=== PATIENT | male | born 1960 | race Caucasian/White ===

== ENCOUNTER 2019-08-30 10:36 | Emergency (ER) | payer BC, SELFPAY ==
[2019-08-30] VITALS (46 sets, daily range): BP systolic 140–154; BP diastolic 82–94; PULSE 96–108; RESP 16–19; TEMP 36.6; O2SAT 93–100; BMI 32.3
--- NOTE | 2019-08-30 10:41 | ED_ITS ---
Entered by Shani Whittaker, acting as scribe for HPI - Abdominal Pain General: Chief Complaint: Abdominal Pain Stated Complaint: Abd pain, back pain Time Seen by Provider: 08/30/19 10:45 Source: patient and family Mode of arrival: ambulatory Limitations: no limitations History of Present Illness: HPI narrative: 58 yo male presents with abdomen pain. pt states it radiates to his R shoulder blade and back. pt states this started last month but worsened yesterday. pt was seen by PCP clinic Dr. Reese and he was Dx with a stomach ulcer. pt states he has had stomach spasms also. pt denies any other symptoms at this time. MD elicited complaint: abdominal pain and other (R shoulder blade and back pain) Pertinent past history: other (ulcer) Onset (ago): day(s) (yesterday) Pain Consistency: constant Location: Periumbilical, RLQ and LLQ Severity: moderate Quality: fullness Radiation: LLQ, RLQ and back Migration to: LLQ and RLQ Exacerbating factors: nothing Relieving factors: nothing Associated Symptoms: Reports change in stool character (black flakes), GI cramping and nausea; Denies bloating, chills, coffee ground emesis, dysuria, fever(s), hematuria, hematemesis, melena, syncope and vomiting Treatments prior to arrival: other (pt was seen by Dr. Reese yesterday, DX with a ulcer) Review of Systems Const: Denies: fever, chills, body aches, fatigue, malaise or night sweats Eyes: Denies: change in vision or blurry vision ENMT: Denies: throat pain, oral sores/lesions, dental pain, nasal discharge or nasal congestion Card: Denies: chest pain, palpitations, irregular heart rhythm, edema, syncope, shortness of breath on exertion, shortness of breath when lying down or leg pain with exertion Resp: Reports: shortness of breath and non-productive cough; Denies: productive cough or wheezing GI: Reports: abdominal pain, nausea, cramping and change in stool character (black flakes); Denies: vomiting, vomiting blood, coffee grounds in vomit, bloating or black tarry stool : Denies: flank pain, difficulty urinating, painful urination, urinary frequency, urinary urgency, urinary incontinence or blood in urine Musc: Denies: neck pain, back pain, extremity pain, extremity swelling, joint pain or joint swelling Skin/Breast: Denies: rash, itching or redness Neuro: Denies: headache, numbness in extremities, weakness in extremities, changes in sensation, lack of coordination, difficulty walking, frequent falls, dizziness, vertigo or confusion Psych: Denies: sleeping more Endo: Denies: excessive urination, excessive thirst, tired all the time or cold intolerance Abdi/Lymph: Denies: easy bruising, easy bleeding, petechiae, enlarged lymph nodes or tender lymph nodes PFSH ED PFSH: Statuses (acute, chronic, etc) shown below reflect problem list status as previously entered and may not be historically accurate Medical History Diabetes mellitus (Acute) Hyperlipidemia (Acute) Social History Smoking and tobacco status: never smoked Alcohol intake: never Physical Exam Const: COMMON NORMALS: average body habitus, oriented x3 and alert GENERAL APPEARANCE: cooperative, comfortable, well kempt and well developed NUTRITIONAL APPEARANCE: obese ORIENTATION/CONSCIOUSNESS: Yes awake, Yes oriented to person and Yes oriented to place HENMT: COMMON NORMALS: normocephalic, head/scalp atraumatic, EAC's normal, TM's normal bilaterally, external nose normal, moist oral mucous membranes and oropharynx normal HEAD & SCALP: normocephalic and atraumatic NOSE: external nose normal EXTERNAL AUDITORY CANAL: EAC's normal TYMPANIC MEMBRANE: TM's normal bilaterally MOUTH: oral and palatal mucosa normal, lip normal and tongue normal THROAT: posterior oropharynx normal and tonsils normal Eye: COMMON NORMALS: PERRL, EOMs intact bilaterally, conjunctivae normal and no scleral icterus CONJUNCTIVA: Yes conjunctivae normal PUPIL: Yes PERRL Neck/C-Spine: COMMON NORMALS: full ROM, no lymphadenopathy, supple, no meningeal signs and thyroid normal THYROID: thyroid normal and asymmetrical Lymph: LYMPHATIC: no lymphadenopathy noted Resp: COMMON NORMALS: normal respiratory effort, no retractions, no use of accessory muscles and clear to auscultation bilaterally AUSCULTATION: clear to auscultation bilaterally Cardio: COMMON NORMALS: regular rate and regular rhythm RATE: regular rate RHYTHM: regular rhythm HEART SOUNDS: no murmurs : COMMON NORMALS: Yes no CVA tenderness BLADDER/KIDNEY EXAM: Yes no CVA tenderness Back/Pelvis: COMMON NORMALS: no CVA tenderness LUMBAR SPINE/LOWER BACK: Yes normal to inspection Extremity: COMMON NORMALS: no clubbing, cyanosis or edema, no calf tenderness and no pedal edema Neuro: COMMON NORMALS: oriented x3 SENSORIUM/ORIENTATION: Yes alert, Yes oriented to person and Yes oriented to place MENINGEAL SIGNS: Yes no meningeal signs Psych: APPEARANCE: Yes well kempt Skin: COMMON NORMALS: no rashes or lesions noted and skin turgor normal GENERAL SKIN EXAM: no rashes or lesions noted and turgor normal Course Vital Signs: Vital signs: Vital Signs Temperature 98 F 08/30/19 10:40 Pulse Rate 98 08/30/19 14:21 Respiratory Rate 16 08/30/19 14:21 Blood Pressure 140/93 08/30/19 14:21 Pulse Oximetry 97 08/30/19 14:21 MDM - Abdominal Pain Lab Data: Labs: Lab Results 08/30/19 08/30/19 08/30/19 Range/Units 10:57 10:57 11:07 WBC 3.6 L (4.0-10.0) 10^3/ uL RBC 5.08 (4.1-5.3) 10^6/u L Hgb 14.7 (11.7-16.6) g/dL Hct 44.2 (42.0-52.0) % MCV 87.0 (80-94) fL MCH 28.9 (28.0-34.0) pg MCHC 33.3 (30.0-36.0) g/dL RDW 14.0 (12.1-15.1) % Plt Count 163 (130-400) 10^3/c mm MPV 10.2 (7.4-10.4) fL Neut % (Auto) 69.4 % Lymph % (Auto) 20.8 % Hamlin % (Auto) 7.8 % Eos % (Auto) 1.4 % Baso % (Auto) 0.3 % Neut # (Auto) 2.5 (1.8-7.7) 10^3/u L Lymph # (Auto) 0.8 (0.8-4.8) 10^3/u L Hamlin # (Auto) 0.3 (0.2-0.9) 10^3/u L Eos # (Auto) 0.1 (0.0-0.8) 10^3/u L Baso # (Auto) 0.0 (0.0-0.1) 10^3/u L Nucleated RBC % (a uto) 0 % Nucleated RBCs # 0.0 /100WBC Sodium 130 L (136-145) mmol/L Potassium 4.5 (3.5-5.1) mmol/L Chloride 91 L (98-107) mmol/L Carbon Dioxide 22 (22-29) mmol/L Anion Gap 21.5 H (5-19) BUN 16 (6-20) mg/dL Creatinine 0.6 L (0.7-1.2) mg/dL GFR Calculation 139.4 H (90-130) mL/min Glucose 380 H (74-109) mg/dL Lactate (0.5-2.2) mmol/L Calcium 10.5 H (8.6-10.0) mg/Dl Total Bilirubin 0.7 (0.15-1.2) mg/dL AST 15 (0-40) U/L ALT 21 (0-41) U/L Alkaline Phosphata se 138 H (40-130) IU/L Total Protein 7.3 (6.6-8.7) g/dL Albumin 4.7 (3.5-5.2) g/dL Globulin 2.6 (1.3-4.6) g/dL Lipase 18 (13-60) U/L Urine Color Straw (Yellow) Urine Appearance Clear (CLEAR) Urine pH 5 (5-7) Ur Specific Gravit y 1.015 (1.005-1.030) Urine Protein Neg (Negative) Urine Glucose (UA) 4+ H (Normal) Urine Ketones 3+ H (Negative) Urine Occult Blood Neg (Negative) Urine Nitrate Negative (Negative) Urine Bilirubin Neg (NEGATIVE) Urine Urobilinogen Norm (Negative) mg/dL Ur Leukocyte Leanna ase Negative (Negative) 08/30/19 Range/Units 12:55 WBC (4.0-10.0) 10^3/ uL RBC (4.1-5.3) 10^6/u L Hgb (11.7-16.6) g/dL Hct (42.0-52.0) % MCV (80-94) fL MCH (28.0-34.0) pg MCHC (30.0-36.0) g/dL RDW (12.1-15.1) % Plt Count (130-400) 10^3/c mm MPV (7.4-10.4) fL Neut % (Auto) % Lymph % (Auto) % Hamlin % (Auto) % Eos % (Auto) % Baso % (Auto) % Neut # (Auto) (1.8-7.7) 10^3/u L Lymph # (Auto) (0.8-4.8) 10^3/u L Hamlin # (Auto) (0.2-0.9) 10^3/u L Eos # (Auto) (0.0-0.8) 10^3/u L Baso # (Auto) (0.0-0.1) 10^3/u L Nucleated RBC % (a uto) % Nucleated RBCs # /100WBC Sodium (136-145) mmol/L Potassium (3.5-5.1) mmol/L Chloride (98-107) mmol/L Carbon Dioxide (22-29) mmol/L Anion Gap (5-19) BUN (6-20) mg/dL Creatinine (0.7-1.2) mg/dL GFR Calculation (90-130) mL/min Glucose (74-109) mg/dL Lactate 1.6 (0.5-2.2) mmol/L Calcium (8.6-10.0) mg/Dl Total Bilirubin (0.15-1.2) mg/dL AST (0-40) U/L ALT (0-41) U/L Alkaline Phosphata se (40-130) IU/L Total Protein (6.6-8.7) g/dL Albumin (3.5-5.2) g/dL Globulin (1.3-4.6) g/dL Lipase (13-60) U/L Urine Color (Yellow) Urine Appearance (CLEAR) Urine pH (5-7) Ur Specific Gravit y (1.005-1.030) Urine Protein (Negative) Urine Glucose (UA) (Normal) Urine Ketones (Negative) Urine Occult Blood (Negative) Urine Nitrate (Negative) Urine Bilirubin (NEGATIVE) Urine Urobilinogen (Negative) mg/dL Ur Leukocyte Leanna ase (Negative) Imaging Data ^: CT Abd/Pel: Radiologist's impression: [address] [place] [address] CT Scan Report Signed Patient: Heron Norton #: [id number] : 1960Acct#:[id number] Age/Sex: 58 / MADM Date: 08/30/19 Loc: ERRoom/Bed: Attending Dr: Ordering Provider/Ordering MD: Pablo Nick DO Date of Service: 08/30/19 Procedure(s): CT abdomen pelvis w con* [id number] Accession Number(s): [id number] Report Number: [id number] PROCEDURE INFORMATION: Exam: CT Abdomen And Pelvis With Contrast Exam date and time: 08/30/2019 11:08 AM Age: 58 years old Clinical indication: Abdominal pain; Generalized; Prior surgery; Surgery date: 6+ months; Additional info: Abd pain TECHNIQUE: Imaging protocol: Computed tomography of the abdomen and pelvis with intravenous contrast. Total DLP: 1379.41 mGy-cm Radiation optimization: All CT scans at this facility use at least one of these dose optimization techniques: automated exposure control; mA and/or kV adjustment per patient size (includes targeted exams where dose is matched to clinical indication); or iterative reconstruction. Contrast material: OMNIPAQUE 300; Contrast volume: 95 ml; Contrast route: IV; COMPARISON: No relevant prior studies available. FINDINGS: Liver: There is no focal abnormality within the liver. Gallbladder and bile ducts: The gallbladder is normal. Pancreas: The pancreas is normal. Spleen: The spleen is normal. Adrenals: The adrenal glands are normal. Kidneys and ureters: There is a simple cyst in the right kidney. The left kidney is normal. There is no evidence of renal or ureteral calcifications. There is no evidence of hydronephrosis. Stomach and bowel: Unremarkable. No obstruction. No mucosal thickening. Appendix: Not identified Intraperitoneal space: Unremarkable. No free air. No significant fluid collection. Vasculature: Unremarkable. No abdominal aortic aneurysm. Lymph nodes: Unremarkable. No enlarged lymph nodes. Bladder: Unremarkable as visualized. Reproductive: The prostate and seminal vesicles are normal. Bones/joints: The lumbar spine demonstrates mild degenerative changes at multiple levels. Soft tissues: There is a right inguinal hernia containing only fat. CT/CT abdomen pelvis w con* [id number] IMPRESSION: No acute finding Radiation Dose CTDIVOL = (mGy): DLP = 1379.41 (mGy-cm) Dictated By:Adam Thorpe Signed By:Alberta Thorpeigned Date/Time:08/30/199 DD/ 1228 Discharge Plan Discharge Patient Disposition: Home, Self-Care Clinical Impression: Gastroenteritis, Diabetes mellitus, Back pain Condition: Stable Prescriptions: New Carafate 1 gram tablet 1 gm PO Q6H 28 Days Qty: 112 RF: 0 Zofran 4 mg tablet 4 mg PO Q6H PRN (Reason: nausea and vomiting) Qty: 20 RF: 0 cyclobenzaprine 5 mg tablet 5 mg PO BID PRN (Reason: muscle spasm) Qty: 20 RF: 0 No Action glimepiride 4 mg tablet 4 mg PO BID RF: 0 Glyxambi 25-5 mg tablet 1 tab PO QAM RF: 0 insulin glargine 100 unit/mL cartridge 40 unit SUBCUT DAILY RF: 0 lansoprazole 30 mg tablet,disintegrat, delay rel 30 mg PO DAILY RF: 0 Discharge Orders: Discharge Order (Routine); Ordered 08/30/19 Ordered By: Pablo Nick Referrals: Thee Reese MD [Primary Care Provider] - Discharge Diet: Clear Liquid Discharge Activity: Increase activity as tolerated Patient Instructions: Abdominal Pain - Adult, Sucralfate (By mouth), Cyclobenzaprine (By mouth), Ondansetron (By mouth), Gastroenteritis (ED) Activity Restrictions/Additional Instructions: Return if worsens. Otherwise follow-up with your primary care doctor. Discharge Date/Time: 08/30/19 14:25 Coding Level of Care Code ED Chip Drier for Chg Fwd Exam Problem Focused The documentation recorded by the Panfilo hendrickson Bridget Annette, accurately reflects the service I personally performed and the decisions made by Sandoval pina Curtis L, DO Aug 30, 2019 10:36
--- NOTE | 2019-08-30 10:52 | PC.NURSE ---
Lab at bedside to draw blood
--- NOTE | 2019-08-30 11:01 | CTR_ITS ---
PROCEDURE INFORMATION: Exam: CT Abdomen And Pelvis With Contrast Exam date and time: 08/30/2019 11:08 AM Age: 58 years old Clinical indication: Abdominal pain; Generalized; Prior surgery; Surgery date: 6+ months; Additional info: Abd pain TECHNIQUE: Imaging protocol: Computed tomography of the abdomen and pelvis with intravenous contrast. Total DLP: 1379.41 mGy-cm Radiation optimization: All CT scans at this facility use at least one of these dose optimization techniques: automated exposure control; mA and/or kV adjustment per patient size (includes targeted exams where dose is matched to clinical indication); or iterative reconstruction. Contrast material: OMNIPAQUE 300; Contrast volume: 95 ml; Contrast route: IV; COMPARISON: No relevant prior studies available. FINDINGS: Liver: There is no focal abnormality within the liver. Gallbladder and bile ducts: The gallbladder is normal. Pancreas: The pancreas is normal. Spleen: The spleen is normal. Adrenals: The adrenal glands are normal. Kidneys and ureters: There is a simple cyst in the right kidney. The left kidney is normal. There is no evidence of renal or ureteral calcifications. There is no evidence of hydronephrosis. Stomach and bowel: Unremarkable. No obstruction. No mucosal thickening. Appendix: Not identified Intraperitoneal space: Unremarkable. No free air. No significant fluid collection. Vasculature: Unremarkable. No abdominal aortic aneurysm. Lymph nodes: Unremarkable. No enlarged lymph nodes. Bladder: Unremarkable as visualized. Reproductive: The prostate and seminal vesicles are normal. Bones/joints: The lumbar spine demonstrates mild degenerative changes at multiple levels. Soft tissues: There is a right inguinal hernia containing only fat. CT/CT abdomen pelvis w con* [id number] IMPRESSION: No acute finding Radiation Dose CTDIVOL = (mGy): DLP = 1379.41 (mGy-cm)
[2019-08-30 11:04] LABS: Basophils % 0.3 %; Eosinophils # 0.1 10^3/uL (0.0-0.8); Eosinophils % 1.4 %; Hematocrit 44.2 % (42.0-52.0); Hemoglobin 14.7 g/dL (11.7-16.6); Lymphocytes # 0.8 10^3/uL (0.8-4.8); Lymphocytes % 20.8 %; Mean Corpuscular HGB Conc 33.3 g/dL (30.0-36.0); Mean Corpuscular Hemoglobin 28.9 pg (28.0-34.0); Mean Platelet Volume 10.2 fL (7.4-10.4); Monocytes # 0.3 10^3/uL (0.2-0.9); Monocytes % 7.8 %; Neutrophils # 2.5 10^3/uL (1.8-7.7); Neutrophils % 69.4 %; Nucleated Red Blood Cells % 0 %; Platelet Count 163 10^3/cmm (130-400); Red Blood Count 5.08 10^6/uL (4.1-5.3); White Blood Count 3.6 10^3/uL (4.0-10.0)
--- NOTE | 2019-08-30 11:20 | PC.NURSE ---
Pt to CT
[2019-08-30 11:25] LABS: Add Urine Microscopic? NO
[2019-08-30 11:31] LABS: Bilirubin Urine Neg (NEGATIVE); Blood Urine Neg (Negative); Glucose Urine UA 4+ (Normal); Ketones Urine 3+ (Negative); Nitrate Urine Negative (Negative); Protein Urine Neg (Negative); Specific Gravity, Urine 1.015 (1.005-1.030); Urine Appearance Clear (CLEAR); Urine Color Straw (Yellow); pH Urine 5 (5-7)
[2019-08-30 11:32] LABS: Leukocyte Esterase Urine Negative (Negative); Urobilinogen Urine Norm (Negative)
[2019-08-30 11:41] LABS: Alanine Aminotransferase 21 U/L (0-41); Albumin Level 4.7 g/dL (3.5-5.2); Alkaline Phosphatase 138 IU/L (40-130); Anion Gap 21.5 (5-19); Aspartate Amino Transferase 15 U/L (0-40); Blood Urea Nitrogen 16 mg/dL (6-20); Calcium 10.5 mg/Dl (8.6-10.0); Carbon Dioxide 22 mmol/L (22-29); Chloride 91 mmol/L (98-107); Globulin 2.6 g/dL (1.3-4.6); Glomerular Filtration Rate 139.4 mL/min (90-130); Glucose 380 mg/dL (74-109); Lipase 18 U/L (13-60); Potassium 4.5 mmol/L (3.5-5.1); Sodium 130 mmol/L (136-145); Total Bilirubin 0.7 mg/dL (0.15-1.2); Total Protein 7.3 g/dL (6.6-8.7)
[2019-08-30] MEDS: iohexol 300 mg/mL 100 mL Btl IV (11:48)
[2019-08-30] MEDS: sodium chloride 0.9% 1,000 ML 999 ML IV (13:01)
[2019-08-30 13:24] LABS: Lactate (Lactic Acid level) 1.6 mmol/L (0.5-2.2)
[2019-08-30] MEDS: insulin regular-human 100 units/1 mL 10 UNIT IVP (13:42)
[2019-08-30] MEDS: orphenadrine 30 mg/mL Inj 2 mL 60 MG IV (13:53)
[2019-08-30] MEDS: ketorolac 30 mg/mL INJ IVP (13:53)
== END 2019-08-30 14:25 | disposition home or self-care (01) ==
PROVIDERS: Emergency Provider Family Medicine; Family Provider Internal Medicine; PCP Internal Medicine
DX: K52.9 Noninfective gastroenteritis and colitis, unspecified (principal); E11.9 Type 2 diabetes mellitus without complications; M54.9 Dorsalgia, unspecified; Z79.4 Long term (current) use of insulin; E78.5 Hyperlipidemia, unspecified
CPT/HCPCS: 36415; 74177; 80053; 81003; 83605; 83690; 85025; 96360; 96365; 96374; 99283; J0131; J1815; J1885; J2360; J7030; Q9967

== ENCOUNTER 2019-09-05 08:49 | Day surgery (SDC) | payer BC, SELFPAY ==
[2019-09-05 09:07] VITALS: BMI 32.1
[2019-09-05 09:17] VITALS: BP 133/91; PULSE 95; RESP 18; TEMP 36.4; O2SAT 97
[2019-09-05 09:19] LABS: Glucose Point of Care 283 mg/dL (70-110)
[2019-09-05] MEDS: sodium chloride 0.9% 1,000 ML 30 ML (09:20)
--- NOTE | 2019-09-05 09:29 | ANES.PREANES ---
Pre-Anesthetic Assessment Pre-Anesthetic Assessment: Height/Weight: Height 1.78 m Weight 101.605 kg Temp Pulse Resp BP Pulse Ox 97.5 F L 95 18 133/91 97 09/05/19 09:17 09/05/19 09:17 09/05/19 09:17 09/05/19 09:17 09/05/19 09:17 Preop Diagnosis: Epig pain rad to back Proposed Procedure: Operation Date: 09/05/19 10:15 Proposed Procedures p EGD(Not Applicable) - Thee Reese MD Was Beta Chrissie taken within 24 hours: N/A Last intake: Intake Last Liquid Date 09/04/19 Last Liquid Time 18:30 Last Solid Date 09/04/19 Last Solid Time 18:30 Last Intake: 18:30 Social: Social History: No alcohol and No tobacco Exam: Pre-Anes Outpt Exam: alert, oriented x 3, clear to auscultation bilaterally and regular rate & rhythm Airway: Submandibular: WNL Cervical ROM: WNL MP: 2 Pulmonary: Pulmonary: Sleep apnea Comments: no cpap CV/HEM: CV/HEM: None reported : : None reported Hepatic: Hepatic: None reported GI: GI: GERD Comments: controlled Metabolic: Metabolic: DM (avg 200's) and Morbid obesity Musc/skel: Musc/skel: None reported Neuropsych: Neuropsych: None reported Anesthetic Plan: ASA status: III Anesthesia: MAC Risk of > 500 ml blood loss (7ml/kg in children): No PFSH Anesthesia PFSH: Social History Smoking and tobacco status: never smoked Alcohol intake: never Data Anesthesia Other Labs: Laboratory Results - last 48 hr 09/05/19 09:16 POC Glucose 283 Cardiac Studies: No Data to Display
--- NOTE | 2019-09-05 10:04 | PM.HPUD ---
H&P update H&P Update: DATE OF SURGERY/PROCEDURE: 09/05/19 DATE H&P PERFORMED: 09/03/19 H&P UPDATE INFORMATION: H&P completed within last 30 days, No changes to prior documentation and H&P is in [facility] EMR on date indicated PLANNED PROCEDURE: Operation Date: 09/05/19 10:15 Proposed Procedures p EGD(Not Applicable) - Thee Reese MD Full H&P Perinent History: Medical/Surgical History: Medical History (Updated 09/03/19 @ 15:11 by Thee Reese MD) Diabetes mellitus (Acute) Hyperlipidemia (Acute) Social History: Social History Smoking and tobacco status: never smoked Alcohol intake: never
[2019-09-05 10:29] VITALS: BP 134/83; PULSE 93; RESP 18; TEMP 36.8; O2SAT 96
--- NOTE | 2019-09-05 10:30 | ANE.PACU ---
 Inpatient post-anesthesia follow up: Airway intact: Yes Vital signs: Temperature 97.5 F Pulse Rate [Monito r] 95 Respiratory Rate 18 Blood Pressure [Le ft Arm] 133/91 Pulse Oximetry 97 Oxygen Delivery Me thod Room Air Oxygen Flow Rate Fraction of Inspir ed Oxygen Hydration adequate: Yes Nausea and vomiting: No Pain level: 1 Mental status: Baseline
[2019-09-05 10:42] VITALS: BP 114/80; PULSE 85; RESP 18; O2SAT 96
[2019-09-08 06:32] LABS: H. Pylori / CLO Test Negative
== END 2019-09-05 10:57 | disposition home or self-care (01) ==
PROVIDERS: Family Provider Internal Medicine; PCP Internal Medicine; Visit Provider Internal Medicine
PROC: 0DJ08ZZ Inspection of Upper Intestinal Tract, Via Natural or Artificial Opening Endoscopic (ICD-10-PCS; CPT 43235; principal; 2019-09-05 10:15)
DX: R10.13 Epigastric pain (principal); M54.9 Dorsalgia, unspecified; E11.9 Type 2 diabetes mellitus without complications; Z79.4 Long term (current) use of insulin; E78.5 Hyperlipidemia, unspecified; K25.9 Gastric ulcer, unspecified as acute or chronic, without hemorrhage or perforation; K29.70 Gastritis, unspecified, without bleeding
CPT/HCPCS: 12345; 36416; 43239; 82962; 87077; 96365; J2704; J7030

== ENCOUNTER → 2020-03-08 15:51 | Outpatient (BNVA) | payer BC, SELFPAY | PROVIDERS: Family Provider Internal Medicine; PCP Internal Medicine; Visit Provider Internal Medicine | DX: E11.9 Type 2 diabetes mellitus without complications (principal); R30.0 Dysuria; E03.9 Hypothyroidism, unspecified; R10.13 Epigastric pain; E78.5 Hyperlipidemia, unspecified; Z85.038 Personal history of other malignant neoplasm of large intestine | CPT/HCPCS: 80053; 81000; 83036; 84443; 85025; 85651 ==

== ENCOUNTER → 2020-12-06 16:11 | Outpatient (BNVA) | payer BC, SELFPAY | PROVIDERS: Family Provider Internal Medicine; PCP Internal Medicine; Visit Provider Internal Medicine | DX: H53.2 Diplopia (principal); R01.1 Cardiac murmur, unspecified; E11.319 Type 2 diabetes mellitus with unspecified diabetic retinopathy without macular edema; E78.5 Hyperlipidemia, unspecified; R10.13 Epigastric pain | CPT/HCPCS: 80053; 83036; 84443; 85025; 85651; 86038; 86140 ==

== ENCOUNTER 2020-12-07 07:58 | Outpatient (CLI) | payer BC, SELFPAY ==
--- NOTE | 2020-12-07 08:00 | MR_ITS ---
WS: [id number] MRA ANGIOGRAPHY [place] OF [place] HISTORY: H53.2 - Diplopia COMPARISON: None available. TECHNIQUE: 3-D MR angiography is performed of the [place] of [place]. All images are reviewed including source images. Distal vertebral and basilar arteries are intact with no significant stenosis or plaque. Posterior ce rebral arteries are normal course and caliber. Posterior communicating arteries are both patent. Intracranial portion of the internal carotid arteries are normal course and caliber. No significant a therosclerosis, stenosis or aneurysm identified. Middle and anterior cerebral arteries are both paten t with no significant disease. Anterior communicating artery is also normal. MR/MR angio head wo con [id number] IMPRESSION: Normal MRA [place].
--- NOTE | 2020-12-07 08:05 | MR_ITS ---
WS: [id number] MRA CAROTID ARTERIES HISTORY: H53.2 - Diplopia COMPARISON: None available. TECHNIQUE: MRA is performed with intravenous gadolinium. MIP and source images are reviewed. Right: Normal common, internal and external carotid arteries. Normal bifurcation. No stenosis. Left: Normal, common, internal and external carotid arteries. Normal bifurcation. No stenosis. Subclavian Arteries: Normal. Vertebral Arteries: Normal. MR/MR angio neck w con* [id number] IMPRESSION: Normal MR angiography carotid arteries.
--- NOTE | 2020-12-07 08:39 | MR_ITS ---
WS: [id number] MRI BRAIN WITH AND WITHOUT CONTRAST HISTORY: H53.2 - Diplopia COMPARISON: None available. TECHNIQUE: Multiplanar imaging performed through the brain with MultiHance 20 ml's IV. No acute infarcts are seen. Valdez-white matter differentiation is well preserved. There are a few scat tered T2 and FLAIR signal hyperintensities within the white matter from an vessel ischemic disease. N o prior large territory infarct. No hemorrhage. No susceptibility artifacts or prior lacunar infarcts. Ventricles and extra-axial spaces are normal. Clivus and pituitary gland are normal. Visualized posterior fossa and brainstem are also normal. Postcontrast images are negative for masses or vascular malformations. No meningeal enhancement or ab normal enhancement the basal cisterns. Dural venous sinuses are normal. Paranasal sinuses: Well aerated with no significant disease. Mastoid air cells: Normal. Calvarium and scalp: Normal. MR/MR head wo/w con [id number] IMPRESSION: 1. No acute infarcts. 2. No masses or hemorrhage. There is no abnormal enhancement throughout the br ain. 3. Mild chronic microvascular ischemic disease.
[2020-12-07] MEDS: gadobenate dimeglumine 20 mL vial IV (09:45)
== END 2020-12-07 07:59 ==
LOC: RADSHAW 08:02
PROVIDERS: Family Provider Internal Medicine; PCP Internal Medicine; Visit Provider Internal Medicine
DX: H49.21 Sixth [abducent] nerve palsy, right eye (principal); H53.2 Diplopia; E11.319 Type 2 diabetes mellitus with unspecified diabetic retinopathy without macular edema; Z79.4 Long term (current) use of insulin; R01.1 Cardiac murmur, unspecified
CPT/HCPCS: 70544; 70548; 70553; 99205; A9577

== ENCOUNTER → 2021-06-20 15:32 | Outpatient (BNVA) | payer BC, SELFPAY | PROVIDERS: Family Provider Internal Medicine; PCP Internal Medicine; Visit Provider Nurse Practitioner Family | DX: Z20.822 Contact with and (suspected) exposure to COVID-19 (principal) | CPT/HCPCS: 87635 ==

== ENCOUNTER 2021-06-23 12:51 | Outpatient (CLI) | payer BC, SELFPAY ==
[2021-06-23 12:50] VITALS: BP 134/82; PULSE 106; RESP 18; TEMP 36.2; O2SAT 95
[2021-06-23 13:01] VITALS: BMI 31.5
[2021-06-23 13:25] VITALS: BP 116/73; PULSE 101; RESP 18; TEMP 36.2; O2SAT 97
[2021-06-23 14:22] VITALS: BP 126/73; PULSE 103; RESP 18; TEMP 36.3; O2SAT 93
== END 2021-06-23 12:52 | disposition home or self-care (01) ==
PROVIDERS: PCP Internal Medicine; Visit Provider Nurse Practitioner Family
DX: U07.1 COVID-19 (principal)
CPT/HCPCS: 96365

== ENCOUNTER → 2022-05-06 15:01 | Outpatient (BNVA) | payer BC, SELFPAY | PROVIDERS: PCP Internal Medicine; Visit Provider Nurse Practitioner | DX: U07.1 COVID-19 (principal) | CPT/HCPCS: 87426 ==

== ENCOUNTER → 2023-02-15 08:52 | Outpatient (BNVA) | payer BC, SELFPAY | PROVIDERS: PCP Internal Medicine; Visit Provider Family Medicine | DX: E11.9 Type 2 diabetes mellitus without complications (principal); E78.5 Hyperlipidemia, unspecified | CPT/HCPCS: 80053; 80061; 81000; 83036; 83721; 84439; 84443; 85025 ==

== ENCOUNTER → 2023-09-05 15:45 | Outpatient (BNVA) | payer BC, SELFPAY | PROVIDERS: PCP Internal Medicine; Visit Provider Family Medicine | DX: E11.9 Type 2 diabetes mellitus without complications (principal); E78.5 Hyperlipidemia, unspecified; R10.13 Epigastric pain; Z85.038 Personal history of other malignant neoplasm of large intestine | CPT/HCPCS: 80053; 80061; 83036; 83721; 85025 ==

== ENCOUNTER 2023-12-18 09:07 | Emergency (ER) | payer BC, SELFPAY ==
[2023-12-18 09:17] VITALS: BP 170/93; PULSE 86; TEMP 36.7; O2SAT 95; BMI 33.0
--- NOTE | 2023-12-18 09:21 | XRR_ITS ---
PROCEDURE INFORMATION: Exam: XR Right Foot Exam date and time: 12/18/2023 9:24 AM Age: 63 years old Clinical indication: Injury or trauma; Other: Stepped on bayling wire; Puncture; Foot; Right; Foreign body involvement not specified; Additional info: Plantar puncture TECHNIQUE: Imaging protocol: Radiologic exam of the right foot. Views: 3 or more views. COMPARISON: No relevant prior studies available. FINDINGS: Bones/joints: Inferior calcaneal enthesophyte. Mild degenerative change of the 1st metatarsophalangeal joint. Os peroneus. Soft tissues: No radiopaque foreign body. XR/XR foot RT min 3V* [id number] IMPRESSION: 1. No acute or aggressive osseous abnormality. 2. No radiopaque foreign body.
--- NOTE | 2023-12-18 09:21 | W.ED.LOWEXIN ---
HPI - Extremity Injury (Lower) General: Chief Complaint: Extremity Injury, Lower Stated Complaint: right foot injury Time Seen by Provider: 12/18/23 09:07 Source: patient Mode of arrival: ambulatory Limitations: no limitations History of Present Illness: Patient is a 63-year-old male who presents to ED today for evaluation of a plantar puncture wound to the right foot that he sustained 2 days ago while at home after accidentally stepping on hay baling wire. Puncture did go through the sole of his boot. Patient states since the injury he has noticed some mild edema and redness to the foot. He was seen at his work today and his nurse updated his tetanus. Patient states he has been taking some leftover Amoxicillin and soaking the foot in Epsom salt. He is ambulatory here without difficulty or assistance. Patient concerned as he is a diabetic. MD complaint: foot injury Onset (ago): day(s) Injury: Right: foot Type of Injury: puncture wound Place: home Severity: mild Relieving factors: rest Exacerbating factors: weight bearing Context: other (plantar puncture wound) Associated symptoms: Reports other (swelling/redness) Other symptoms: none Treatments prior to arrival: other (leftover abx/Amoxicillin) Review of Systems Const: Denies: fever(s) Musc: Reports: extremity pain (R foot) and extremity swelling (R foot); Denies: joint pain or joint swelling Skin/Breast: Reports: erythema (R foot) Neuro: Denies: numbness in extremities, weakness in extremities or sensory changes [facility] ED PFSH: Medical History MEMO (obstructive sleep apnea) Diabetic retinopathy 6th nerve palsy Diplopia History of colon cancer Hyperlipidemia Diabetes mellitus Surgical History S/P colon resection S/P colonoscopy Family History Father Cancer prostate Grandfather Cancer Paternal-colon Grandfather Cancer Maternal-colon Other Diabetes Denies family history of CAD (coronary artery disease) Clotting disorder Dementia Hyperlipidemia Psychiatric illness Chronic kidney disease (CKD) Anesthesia complication Bleeding disorder Lung disease Hypertension Stroke Social History Smoking and tobacco/nicotine status: never used tobacco/nicotine Alcohol intake: never Substance/Drug Use: never Lives independently: Yes Marital status: Number of children: 0 Current occupational status: employed 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 Alka/Confucianism: Mandaen Special alka needs: No Agree to transfusion: Yes Physical Exam Const: COMMON NORMALS: no acute distress, patient oriented x3, no limitations, healthy appearing, alert and well nourished GENERAL APPEARANCE: cooperative Resp: COMMON NORMALS: normal respiratory effort and clear to auscultation bilaterally AUSCULTATION: clear to auscultation bilaterally Cardio: COMMON NORMALS: regular rate and regular rhythm RATE: regular rate RHYTHM: regular rhythm Extremity: COMMON NORMALS: full ROM, capillary refill normal and no calf tenderness GENERAL: Yes normal exam except as noted RIGHT LOWER EXTREMITY: Yes foot & digits Right foot and digits: Yes ROM (normal), Yes neurovascular exam (normal) and Yes other (see below) OTHER: pt has a very minor 1.5mm plantar puncture wound to plantar forefoot; there is some mild edema involving puncture site and dorsal foot and mild erythema dorsally as well; no drainage from the puncture site; no lymphangitic streaking Neuro: COMMON NORMALS: patient oriented x3, moves all extremities, no focal motor deficits and no sensory deficits noted SENSORIUM/ORIENTATION: Yes alert Skin: NARRATIVE SKIN EXAM: see extremity assessment for pertinent skin findings Course Vital Signs: Vital signs: Vital Signs Temperature 98.1 F 12/18/23 09:17 Pulse Rate 86 12/18/23 09:17 Blood Pressure 170/93 12/18/23 09:17 Pulse Oximetry 95 12/18/23 09:17 Oxygen Delivery Me thod Room Air 12/18/23 09:17 MDM - Extremity Injury (Lower) Medical Decision Making Patient is a 63-year-old male here for a plantar puncture wound to the right foot. He is a diabetic. XR showing no retained foreign body. Puncture did occur through the sole of his boot. He will need coverage for staph aureus and pseudomonas. I will place him on cephalexin and ciprofloxacin. Strict return to ED precautions given. Medical Records I reviewed the patient's medical records. XR interpretation done by ED provider, pending radiology final review Discharge Plan Discharge Patient Disposition: Home Clinical Impression: Puncture wound of plantar aspect of right foot Qualifiers: Encounter type: initial encounter Qualified Code(s): S91.331A - Puncture wound without foreign body, right foot, initial encounter Condition: Stable Prescriptions: New Cipro 500 mg tablet 500 mg PO Q12H Qty: 14 0RF cephalexin 500 mg capsule 500 mg PO Q6H 7 Days Qty: 28 0RF No Action Byetta 5 mcg/dose (250 mcg/mL) 1.2 mL pen injector 10 mcg SUBCUT BID Qty: 1.2 6RF Rx Instructions: 340b Toujeo Max U-300 SoloStar 300 unit/mL (3 mL) insulin pen 160 unit SUBCUT DAILY Qty: 6 3RF atorvastatin 40 mg tablet See Rx Instructions .ROUTE .COMPLEX Qty: 90 0RF Dose Instruction: Take 1 tablet by mouth once daily Rx Instructions: Take 1 tablet by mouth once daily Jardiance 10 mg tablet See Rx Instructions .ROUTE .COMPLEX Qty: 30 0RF Dose Instruction: Take 1 tablet by mouth once daily Rx Instructions: Take 1 tablet by mouth once daily glimepiride 4 mg tablet See Rx Instructions .ROUTE .COMPLEX Qty: 60 0RF Dose Instruction: TAKE 1 TABLET BY MOUTH TWICE DAILY TAKE THE FIRST TAB WITH BREAKFAST OR THE FIRST MAIN MEAL OF THE DAY Rx Instructions: TAKE 1 TABLET BY MOUTH TWICE DAILY TAKE THE FIRST TAB WITH BREAKFAST OR THE FIRST MAIN MEAL OF THE DAY Discharge Orders: Discharge ED (Routine); Ordered 12/18/23 Ordered By: Kesha Guevara Referrals: Ortega New MD [Primary Care Provider] - Patient Instructions: Puncture Wound (DC), Puncture Wound in the Foot (ED) Activity Restrictions/Additional Instructions: As we discussed your x-ray did not show any evidence of any retained foreign body. You need to fill your 2 antibiotics today and start them immediately. You may continue to soak the foot in warm soapy water and/or Epsom salt. Monitor closely for worsening infection including worsening redness, warmth, swelling, red streaking up your foot or leg, fevers greater than 100.4, generally feeling worse or unwell, or any other concerns you may have. You need to seek medical re-evaluation if these occur. Coding Level of Care Code ED Cost Accounting Clerk for Angelica Lawson
== END 2023-12-18 09:45 | disposition home or self-care (01) ==
PROVIDERS: Emergency Provider Physician Assistant; PCP Family Medicine
DX: S91.331A Puncture wound without foreign body, right foot, initial encounter (principal); Z79.4 Long term (current) use of insulin; Z79.84 Long term (current) use of oral hypoglycemic drugs; E11.9 Type 2 diabetes mellitus without complications; E78.5 Hyperlipidemia, unspecified; Z85.038 Personal history of other malignant neoplasm of large intestine; W26.8XXA Contact with other sharp object(s), not elsewhere classified, initial encounter
CPT/HCPCS: 73630; 99283

== ENCOUNTER 2024-04-22 16:14 | Outpatient (CLI) | payer BC, SELFPAY | END 2024-04-22 16:15 | disposition home or self-care (01) | LOC: LAB 16:15 | PROVIDERS: PCP Family Medicine; Visit Provider Internal Medicine | DX: E11.9 Type 2 diabetes mellitus without complications (principal); E78.5 Hyperlipidemia, unspecified | CPT/HCPCS: 36415; 80053; 80061; 82044; 83036 ==